=== PATIENT | female | born 1990 | race Caucasian/White ===

== ENCOUNTER 2024-06-29 06:04 | Emergency (ER) | payer OTHER, SELFPAY ==
[2024-06-29 06:10] VITALS: BP 111/83
[2024-06-29 06:45] LABS: % Basophils 0.5 % (0-2); % Eosinophils 5.9 % (0-6); % Immature Granulocytes 0.4 % (0-0.5); % Lymphocytes 17.9 % (20.5-51.1); % Monocytes 7.3 % (1.7-9.3); Absolute Basophils 0.1 10^3/uL (0-0.2); Absolute Eosinophils 0.6 10^3/uL (0-0.7); Absolute Lymphocytes 1.8 10^3/uL (1.2-3.4); Absolute Monocytes 0.7 10^3/uL (0.1-0.6); Absolute Neutrophils 6.8 10^3/uL (1.4-6.5); Hematocrit 32.2 % (37.0-47.0); Hemoglobin 11.2 g/dL (12.0-16.0); Mean Corp Hgb Conc. 34.8 g/dL (33.0-37.0); Mean Corpuscular Hgb 30.6 pg (27.0-31.0); Mean Platelet Volume 9.5 fL (7.4-10.4); Nucleated Red Blood Cells % 0 %; Platelet Count 285 10^3/uL (130-400); Red Blood Cell Count 3.66 10^6/uL (4.20-5.40); Red Cell Dist. Width 12.9 % (11.5-14.5)
[2024-06-29 07:00] LABS: ALT (SGPT) 25 U/L (0-35); AST (SGOT) 27 U/L (14-36); Albumin 3.3 g/dl (3.5-5.0); Alkaline Phosphatase 32 U/L (38-126); Blood Urea Nitrogen 5 mg/dl (7-17); Calcium 9.3 mg/dl (8.4-10.2); Carbon Dioxide 22 mmol/L (22-30); Chloride 108 mmol/L (98-107); Glucose 95 mg/dl (70-99); Potassium 3.8 mmol/L (3.5-5.1); Sodium 137 mmol/L (135-145); Total Bilirubin 0.3 mg/dl (0.2-1.3); Total Protein 6.1 g/dl (6.3-8.2); eGFR > 60.00
[2024-06-29 07:16] LABS: NT-proBNP 81.9 pg/ml; Troponin I < 0.012 ng/ml
--- NOTE | 2024-06-29 07:54 | ED.GENMED ---
History of Present Illness
General
Chief Complaint: Chest Pain
Source: patient
Time Seen by Provider: 06/29/24 07:40
History of Present Illness
History of Present Illness:
33-year-old female presents to the emergency room complaining of nasal congestion, postnasal drip, difficulty sleeping because of the symptoms. Patient also experience of discomfort in her left chest this morning. It sort of a sharp constant
discomfort. She denies any fever or chills. She denies any recent travel or periods of immobilization. She is 18 weeks . Nothing makes the chest discomfort better or worse. It is not worse with taking a deep breath. Patient has had
issues with seasonal allergies in the past.
Past History
Past History
ED Past Medical History: Other (Renal calculus)
ED Past Surgical History: Tonsilectomy
Social History
Tobacco: Non-smoker
Alcohol: None
Personal:
Living: with family
Phy Exam
Physical Exam
Physical Exam:
General: Awake, Alert, Oriented X3. No acute distress.
Vitals: unremarkable
Head: Atraumatic
Nose: Positive nasal congestion and hyperemia
Eyes: Pupils equal, EOMI
Throat: Airway intact, no exudates
Neck: Trachea midline
Lungs: Clear and equal b/l
Heart: Regular rate, no murmurs
Abd: Soft, gravid uterus consistent with dates, nontender, No pulsatile mass
Neuro: Nonfocal
Skin: Warm, dry, no rash
Extremities: pulses equal b/l, no edema
Scores
Heart Score for Chest Pain Patients
STEMI patient?: Not applicable
Course
Orders/Labs/Results
Orders:
Orders
06/29/24 06:16
Electrocardiogram (*1) Urgent
Reason for Study: Other
Other Reason for Exam: Respiratory Distress
Cardiac Monitoring- Treatment ONCE
EKG- Treatment ONCE
O2 Therapy [RESP] Urgent
Titrate/Wean O2 to maintain O2 sat greater than (%): 93
Special Instructions: TO MAINTAIN CONTINUOUS O2 SATS >/= 93%
Pulse Ox/cont/shift [RESP] Urgent
Quantity: 1
Special Instructions: continuous pulse ox
06/29/24 06:36
Complete Blood Count/With Diff Urgent
Comprehensive Metabolic Panel Urgent
NT-proBNP Urgent
Troponin I Urgent
06/29/24 08:00
Heart Tones ONCE
06/29/24 08:29
COVID-19 Antigen Urgent
Source: Nasal Swab
Influenza A+B Rapid Molecular Urgent
NAS Source: Nasal Swab
Specimen Description:
06/29/24 08:42
Loratadine [Claritin] 10 mg PO NOW STA
Abnormal Lab Results
06/29/24
06:36
RBC 3.66 L 10^6/uL
(4.20-5.40)
Hgb 11.2 L g/dL
(12.0-16.0)
Hct 32.2 L %
(37.0-47.0)
Absolute Neuts (auto) 6.8 H 10^3/uL
(1.4-6.5)
Absolute Monos (auto) 0.7 H 10^3/uL
(0.1-0.6)
Lymphocytes % 17.9 L %
(20.5-51.1)
Chloride 108 H mmol/L
(98-107)
BUN 5 L mg/dl
(7-17)
Creatinine 0.4 L mg/dL
(0.6-1.0)
Alkaline Phosphatase 32 L U/L
(38-126)
Total Protein 6.1 L g/dl
(6.3-8.2)
Albumin 3.3 L g/dl
(3.5-5.0)
06/29/24 06:36
06/29/24 06:36
Vital Signs
Initial and Last Documented VS:
Initial Vital Signs
Temp Pulse Resp BP Pulse Ox
98.2 F 92 20 111/83 99
06/29/24 06:10 06/29/24 06:10 06/29/24 06:10 06/29/24 06:10 06/29/24 06:10
Last Documented Vital Signs
Temp Pulse Resp BP Pulse Ox
98.2 F 81 17 94/55 99
06/29/24 06:10 06/29/24 08:45 06/29/24 08:45 06/29/24 08:43 06/29/24 08:45
MDM/Problems Addressed
Differential Diagnosis Includes:
COVID, flu, other viral URI, seasonal allergies, rhinitis
MDM/Problems Addressed:
Patient presents primarily concerned about nasal congestion and difficulty breathing through her nose. She also alluded to some discomfort of her left upper chest which is mild. She is not tachycardic. She is not hypoxic. My suspicion for PE is
essentially 0 at this point. Patient symptoms seem more related to this URI or rhinitis. Recommend Flonase. Continue Claritin. Patient can try Benadryl as well. Pseudoephedrine can be tried as a last ditch effort in second trimester.
*Pulse Oximetry
Patient hypoxic: no
*EKG
Interpreted by ED Provider?: Yes
Heart Rate: 83
Rate: normal
Rhythm: sinus
[place]: normal axis
Interval: normal interval
QRS Pattern: normal QRS
Ischemia: no ischemia
*Email Marketing Assistant Interpretation
Rate: normal
Interpretation: normal
Rhythm: sinus
*Critical Care Note
Total Time (30-74mins, 75-104mins- exclusive of procedures): Not Applicable
ED Attending Note
-
Portions of this chart may have been created with voice recognition software.� Occasional wrong word or��sound alike� substitutions may have occurred due to the inherent limitations of voice recognition software.
Discharge Plan
Departure
Patient Disposition: Home (Routine Discharge)
Date of Disposition: 06/29/24
Time of Disposition: 09:19
Patient with high blood pressure during this ER visit?: No
Condition: Good
Discharge Problem:
Acute rhinitis
Instructions: Cough, runny nose, and colds
Prescriptions:
New
fluticasone propionate [Flonase Allergy Relief] 50 mcg/actuation spray,suspension
1 spray intranasal BID Qty: 16 0RF
No Action
prednisone 10 mg Tablet
See Rx Instructions .ROUTE .COMPLEX Qty: 30 0RF
Rx Instructions:
Take By Mouth:
40 mg daily x3 days, 30 mg daily x3 days,
20 mg daily x3 days, 10 mg daily x3 days.
ondansetron 4 mg tablet,disintegrating
4 mg PO Q8H PRN (Reason: nausea and vomiting) Qty: 7 0RF
Referrals:
Salomon Torres MD [Family Provider] -
Activity Restrictions/Additional Instructions:
Your blood work here looks good. Your tests for covid and flu are negative. Your symptoms could be due to environmental allergies a viral illness or from being . I would continue taking Claritin once a day. I suggest adding a steroid
nasal spray, Flonase, which you can get over the counter and is safe in . pseudaoepherine, which is another over the counter medication, can be used in the second trimester of but I would only use this as a last resort.
Interventions
Interventions:
*Risk Screen - Suicide Last Done: 06/29/24 06:10
*General Assessment Last Done: 06/29/24 06:10
*Neglect/Abuse Screening Last Done: 06/29/24 06:10
*ED COVID-19 Vaccine History Last Done: 06/29/24 06:10
*Nursing Disposition Last Done: 06/29/24 09:52
ED- Cardiac Assessment Last Done: 06/29/24 08:42
Discharge Date and Time
Discharge Date/Time: 06/29/24 09:53
Print Language: POLISH
[2024-06-29 08:43] VITALS: BP 94/55
[2024-06-29] MEDS: CLARITIN 10 MG PO (08:56)
[2024-06-29 09:12] LABS: COVID-19 Antigen Negative (Negative)
== END 2024-06-29 09:53 | disposition home or self-care (01) ==
LOC: EMR 06:04
PROVIDERS: EMERGENCY PHYSICIAN Emergency Medicine; FAMILY PHYSICIAN Internal Medicine
DX: O99.512 Diseases of the respiratory system complicating pregnancy, second trimester (principal); J00 Acute nasopharyngitis [common cold]; Z3A.18 18 weeks gestation of pregnancy; Z11.52 Encounter for screening for COVID-19
CPT/HCPCS: 99284; 80053; 83880; 84484; 85025; 87502; 87811; 93005

== ENCOUNTER 2024-10-21 10:25 | Emergency (ER) | payer OTHER, SELFPAY ==
[2024-10-21 10:27] VITALS: BP 138/84
--- NOTE | 2024-10-21 10:57 | ED.GENMED ---
History of Present Illness
General
Chief Complaint: Heart Rate Problem
Time Seen by Provider: 10/21/24 10:42
Nursing documentation reviewed up to this point in time: agreed with
History of Present Illness
History of Present Illness:
34-year-old G3, P2 female presents to the ER for evaluation of palpitations and feeling of shortness of breath. Patient is 36 weeks . She reports her [employer] is Dr. Duke. She had reached out to their office due to feeling unwell and was
referred to the ER for further evaluation. She reports that she has been having generalized headaches daily over the last week. She reports that the pain is alleviated with Tylenol but she sometimes feels as though she needs to take more than 1
dose per day. She denies fevers. She denies cough or sore throat. She has noted some swelling to her extremities over the last several weeks to months, not significantly changed today. She denies chest pain. She denies any change in urine
output. She states she has been drinking approximately 1-2 bottles of water per day. She has not been sleeping very well recently. She denies vomiting or diarrhea. She has been urinating without any dysuria. She states that she has a known left
kidney stone and occasionally has discomfort, none at the current time. She denies dysuria. She has been feeling the baby move. She denies any complications with her 2 prior pregnancies-no personal history of venous thromboembolic disease.
Past History
Past History
ED Past Medical History: Other (Renal calculus)
ED Past Surgical History: Tonsilectomy
Social History
Tobacco: Non-smoker
Alcohol: None
Personal:
Living: with family
Review of Systems
Review of Systems
Allergies reviewed?: Yes
Phy Exam
Physical Exam
Physical Exam:
Patient is awake, alert, appears in no acute distress, sclera anicteric, conjunctiva pink, PERRL, EOMI, no photophobia, mucous membranes tacky, heart tachycardic rate and rhythm without murmurs or ectopy, lungs are clear to auscultation without
wheezes rales or rhonchi, abdomen is gravid with palpable uterus well above the umbilicus, no tenderness on palpation, extremities with trace edema to the ankles bilaterally, 2+ DP pulses present, brisk cap refill to the toes, no dysdiadochokinesia,
no ataxia, no pronator drift, GCS is 15
Course
Orders/Labs/Results
Orders:
Orders
10/21/24 10:30
ECG [Electrocardiogram (*1)] Urgent
Reason for Study: Palpitations
EKG- Treatment ONCE
10/21/24 10:52
0.9% Sodium Chloride 1000 ml [Nss] 1,000 ml IV BOLUS
10/21/24 10:53
Acetaminophen [Tylenol] 1,000 mg PO NOW STA
10/21/24 11:00
Heart Tones ONCE
10/21/24 12:00
COVID-19 Antigen Urgent
Source: Nasal Swab
Complete Blood Count/With Diff Urgent
Comprehensive Metabolic Panel Urgent
Urinalysis Reflex To Culture Urgent
Date Specimen was Collected: 10/21/24
Time Specimen was Collected: 11:51
Urine Microscopic Reflex Cult Urgent
Urine Culture Urgent
NAS Source: U
Specimen Description:
Date Specimen was Collected: 10/21/24
Time Specimen was Collected: 11:51
10/21/24 13:31
Cephalexin Monohydrate [Keflex] 500 mg PO NOW STA
Abnormal Lab Results
10/21/24
12:00
WBC 13.1 H 10^3/uL
(4.8-10.8)
RBC 3.78 L 10^6/uL
(4.20-5.40)
Hgb 11.7 L g/dL
(12.0-16.0)
Hct 33.5 L %
(37.0-47.0)
Absolute Neuts (auto) 10.8 H 10^3/uL
(1.4-6.5)
Absolute Monos (auto) 0.9 H 10^3/uL
(0.1-0.6)
Neutrophils % 81.9 H %
(42.2-75.2)
Lymphocytes % 10.1 L %
(20.5-51.1)
Chloride 109 H mmol/L
(98-107)
Creatinine 0.4 L mg/dL
(0.6-1.0)
Total Protein 6.1 L g/dl
(6.3-8.2)
Leukocyte Esterase Rfl 1+ A
(Negative)
Urine Bacteria (Reflex) Many A
(Negative)
10/21/24 12:00
10/21/24 12:00
Nonspecific elevation of white blood count. Hemoglobin stable compared to prior labs from 06/29/2024. Urinalysis does not show any protein. Many bacteria present but also greater than 30 squamous epithelia, likely consistent with contamination
Vital Signs
Initial and Last Documented VS:
Initial Vital Signs
Temp Pulse Resp BP Pulse Ox
98.4 F 132 18 138/84 97
10/21/24 10:27 10/21/24 10:27 10/21/24 10:27 10/21/24 10:27 10/21/24 10:27
Last Documented Vital Signs
Temp Pulse Resp BP Pulse Ox
98.4 F 110 18 103/73 97
10/21/24 10:27 10/21/24 11:30 10/21/24 11:30 10/21/24 11:00 10/21/24 11:30
MDM/Problems Addressed
Differential Diagnosis Includes:
Differential diagnosis to consider but not limited to arrhythmia, lecture light dyscrasia, dehydration, preeclampsia along with other etiologies considered
*Pulse Oximetry
SaO2: 97
Oxygen Mode of Delivery: Room air
Patient hypoxic: no
*EKG
Interpreted by ED Provider?: Yes (I independently viewed and interpreted twelve-lead EKG showing sinus tachycardia, rate 110, normal axis, normal intervals, no evidence for acute ischemia similar to prior from 06/29/2024 other than increased rate
today)
*Ob Scrub Tech Interpretation
Rate: tachycardiac (I independently viewed and interpreted monitor strip showing sinus tachycardia, no ectopy)
*Critical Care Note
Total Time (30-74mins, 75-104mins- exclusive of procedures): Not Applicable
Update Note
Update Note:
Patient had normal heart rate at time of initial encounter but while speaking with her her heart rate elevated to 110-120. While doing her physical exam, patient seemed familiar with the neurologic exam. She reports that she has had panic attacks
in the past and reports that this must have been done during an episode in the past, no prior history of migraines. Will give Tylenol, IV hydration, screening labs. I counseled patient extensively on the low risk of radiation exposure to the baby
to obtain 2 view chest given patient complaint of palpitations and dyspnea. She agrees with plan at current. Blood pressure normal.
1200: Patient had multiple concerns about labs, IV fluids and chest x-ray. is now present at bedside. I discussed with them planned workup in the ER. She is declining chest x-ray until we have lab results available. Will reassess
1315: Patient feeling much better after Tylenol and IV fluids. I discussed with patient and present at bedside all test results. Although urinalysis appears contaminated more than true infection, given this late stage of will
treat presumptively. Patient agrees with plan and need to follow-up with her [employer] for reevaluation, she has an appointment scheduled this week. She and expressed understanding of discharge instructions and have no questions at the current
time.
ED Attending Note
-
Portions of this chart may have been created with voice recognition software.� Occasional wrong word or��sound alike� substitutions may have occurred due to the inherent limitations of voice recognition software.
Discharge Plan
Departure
Patient Disposition: Home (Routine Discharge)
Date of Disposition: 10/21/24
Time of Disposition: 13:30
Patient with high blood pressure during this ER visit?: No
Discharge Problem:
Heart palpitations, Headache, Asymptomatic bacteriuria
Prescriptions:
New
cephalexin 500 mg capsule
500 mg PO BID Qty: 9 0RF
No Action
prednisone 10 mg Tablet
See Rx Instructions .ROUTE .COMPLEX Qty: 30 0RF
Rx Instructions:
Take By Mouth:
40 mg daily x3 days, 30 mg daily x3 days,
20 mg daily x3 days, 10 mg daily x3 days.
ondansetron 4 mg tablet,disintegrating
4 mg PO Q8H PRN (Reason: nausea and vomiting) Qty: 7 0RF
fluticasone propionate [Flonase Allergy Relief] 50 mcg/actuation spray,suspension
1 spray intranasal BID Qty: 16 0RF
Referrals:
Salomon Torres MD [Family Provider, Internal Medicine]
Activity Restrictions/Additional Instructions:
Please follow-up with your [employer] this week as scheduled. Use Tylenol as needed for any discomforts. Please complete course of antibiotics as prescribed. Encourage fluids-you should be drinking at least 64 ounces of water daily. Return to the ER
for any concern
Interventions
Interventions:
*Risk Screen - Suicide Last Done: 10/21/24 10:27
*General Assessment Last Done: 10/21/24 10:27
Discharge Date and Time
Print Language: [place]
[2024-10-21 11:00] VITALS: BP 103/73
[2024-10-21 11:36] VITALS: BMI 29.6
[2024-10-21] MEDS: NSS 1000 IV (11:59)
[2024-10-21 12:15] LABS: Hematocrit 33.5 % (37.0-47.0); Hemoglobin 11.7 g/dL (12.0-16.0); Mean Corp Hgb Conc. 34.9 g/dL (33.0-37.0); Mean Corpuscular Volume 88.6 fL (81.0-99.0); Nucleated Red Blood Cells % 0 %; Platelet Count 294 10^3/uL (130-400); Red Cell Dist. Width 13.0 % (11.5-14.5)
[2024-10-21 12:33] LABS: ALT (SGPT) 28 U/L (0-35); AST (SGOT) 28 U/L (14-36); Albumin 3.5 g/dl (3.5-5.0); Alkaline Phosphatase 73 U/L (38-126); Blood Urea Nitrogen 7 mg/dl (7-17); Calcium 10.2 mg/dl (8.4-10.2); Carbon Dioxide 24 mmol/L (22-30); Chloride 109 mmol/L (98-107); Estimated Creatinine Clearance > 125 ml/min; Glucose 82 mg/dl (70-99); Potassium 4.1 mmol/L (3.5-5.1); Sodium 136 mmol/L (135-145); Total Protein 6.1 g/dl (6.3-8.2); eGFR > 60.00
[2024-10-21 12:34] LABS: COVID-19 Antigen Negative (Negative)
[2024-10-21 12:39] LABS: Urine Character Clear (Clear)
[2024-10-21 13:00] VITALS: BP 104/69
[2024-10-21 13:15] LABS: Urine Squamous Cell >30 /LPF (Few)
[2024-10-21 13:17] LABS: Urine Red Blood Cell 0-2 /HPF (0-2)
[2024-10-21 13:45] VITALS: BP 116/57
[2024-10-21] MEDS: KEFLEX 500 MG PO (13:53)
[2024-10-21 13:57] VITALS: BP 116/57
== END 2024-10-21 13:58 | disposition home or self-care (01) ==
LOC: EMR 10:25
PROVIDERS: EMERGENCY PHYSICIAN Emergency Medicine; FAMILY PHYSICIAN Internal Medicine
DX: O99.891 Other specified diseases and conditions complicating pregnancy (principal); R00.2 Palpitations; R51.9 Headache, unspecified; R82.71 Bacteriuria; Z3A.36 36 weeks gestation of pregnancy
CPT/HCPCS: 99284; 96360; 80053; 81003; 81015; 85025; 87086; 87811; 93005